=== PATIENT | male | born 1955 | race Caucasian/White ===

== ENCOUNTER 2016-08-09 18:40 | Emergency (ER) | payer OTHER ==
[2016-08-09 20:48] LABS: BASOPHIL 0.5 % (0-2); EOSINOPHIL 3.5 % (0-5); HCT 47.9 % (42.0-52.0); HGB 16.4 g/dl (13.2-18.0); LYMPHOCYTE 25.9 % (15-48); MCH 29.7 pg (25.0-31.0); MCHC 34.2 g/dL (32.0-36.0); MCV 86.8 fL (78.0-100.0); MONOCYTE 9.5 % (0-12); MPV 8.6 fL (6.0-9.5); NEUTROPHIL 60.6 % (41-80); PLT 262 K/uL (150-400); RBC 5.52 M/uL (4.70-6.00); RDW 13.2 % (11.5-14.0); WBC 5.7 K/uL (4.0-10.5)
[2016-08-09 21:06] LABS: POTASSIUM 3.9 mmol/L (3.5-5.1)
== END 2016-08-09 22:35 | disposition home or self-care (01) ==
LOC: FER 18:40
PROVIDERS: Emergency Medicine
DX: J40 Bronchitis, not specified as acute or chronic (principal); Z88.5 Allergy status to narcotic agent
CPT/HCPCS: 36415; 71020; 80048; 83880; 85025; 94640

== ENCOUNTER 2016-08-10 06:19 | Emergency (ER) | payer OTHER | END 2016-08-10 07:30 | disposition home or self-care (01) | LOC: FER 06:19 | DX: R19.7 Diarrhea, unspecified (principal); J40 Bronchitis, not specified as acute or chronic; R03.0 Elevated blood-pressure reading, without diagnosis of hypertension; Z88.5 Allergy status to narcotic agent | CPT/HCPCS: 99283 ==

== ENCOUNTER 2022-01-12 20:40 | Emergency (ER) | payer MEDICARE ==
[2022-01-12 22:30] LABS: BILIRUBIN NEGATIVE (NEGATIVE); BLOOD NEGATIVE Ery/uL (NEGATIVE); CLARITY CLEAR (CLEAR); COLOR YELLOW (YELLOW); GLUCOSE (U) NORMAL (NORMAL); LEUKOCYTES NEGATIVE Leu/uL (NEGATIVE); NITRITE NEGATIVE (NEGATIVE); PROTEIN NEGATIVE (NEGATIVE); SPECIFIC GRAVITY 1.025 (1.001-1.030); UROBILINOGEN 0.2 mg/dL (0.2-1.0); pH 5.5 (5.0-9.0)
[2022-01-12 22:36] LABS: URINARY WBC RARE
[2022-01-12 23:10] LABS: EOSINOPHIL 4.2 % (0-7); HCT 44.4 % (42.0-52.0); HGB 15.1 g/dl (13.2-18.0); LYMPHOCYTE 31.9 % (15-48); MCH 30.3 pg (25.0-31.0); MCV 89.2 fL (78.0-100.0); MONOCYTE 6.6 % (0-12); MPV 8.6 fL (6.0-9.5); NEUTROPHIL 55.9 % (41-80); NRBC 0; PLT 271 K/uL (150-400); RBC 4.98 M/uL (4.70-6.00); RDW 12.6 % (11.5-14.0); WBC 9.4 K/uL (4.0-10.5)
[2022-01-12 23:11] LABS: ALBUMIN 3.6 g/dL (3.4-5.0); BILIRUBIN - TOTAL 0.4 mg/dL (0.2-1.0); BUN/CREAT RATIO (CALC) 16.2 RATIO; CREATININE 1.05 mg/dL (0.67-1.17); GLOBULIN (CALCULATION) 3.4 g/dL; POTASSIUM 3.9 mmol/L (3.5-5.1)
[2022-01-12] MEDS ORDERED: TIZANIDINE HCL4 M1 PO (23:48)
== END 2022-01-12 23:56 | disposition home or self-care (01) ==
LOC: FER 20:40
PROVIDERS: Emergency Medicine
DX: R10.32 Left lower quadrant pain (principal); I10 Essential (primary) hypertension; Z28.310 Unvaccinated for COVID-19; Z79.899 Other long term (current) drug therapy; Z88.5 Allergy status to narcotic agent
CPT/HCPCS: 36415; 80053; 81001; 83690; 84484; 85025; J1885; J7030